=== PATIENT | male | born 1970 | race Caucasian/White ===

== ENCOUNTER 2016-04-30 12:51 | Day surgery (SDC) | payer OTHER ==
[2016-04-26 13:03] VITALS: BMI 29.2
[~2016-04-30 12:51] MED LIST: DEXAMETHASONE SOD PHOSPHATE 10 MG/ML 1 ML VIAL IV ONE; HYDROmorphone 1 MG/ML 1 ML SYRINGE IVP PRN; LACTATED RINGERS 1,000 ML IV SCH; MIDAZOLAM 2 MG/2 ML VIAL IV PRN; ONDANSETRON 4 MG/2 ML VIAL IVP ONE; Pre Op ABX Message 1 EACH MISC MISCELLANE ONE; SCOPOLAMINE 1.5MG/72HR PATCH TRANSDERM ONE
[2016-04-30] MEDS ORDERED: LIDOCAINE 1% 20 ML VIAL (10MG/ML) FOR IV START INTRADERMA ONE (13:14)
[2016-04-30] MEDS: HEPARIN SODIUM,PORCINE 5,000 UNIT/ML 1 ML VIAL SQ ONE ×2 (13:30→14:37)
[2016-04-30] MEDS ORDERED: HEPARIN SODIUM,PORCINE 5,000 UNIT/ML 1 ML VIAL SQ ONE (15:20)
[2016-04-30] MEDS ORDERED: fentaNYL (PF) 50 MCG/ML 2 ML AMP ONE (15:39)
[2016-04-30] MEDS ORDERED: LIDOCAINE 1% INJ 10MG/ML (20 ML MDV) ONE (15:39)
[2016-04-30] MEDS ORDERED: SODIUM CHLORIDE 0.9% 50 ML with ceFAZolin 2,000 MG IV ONE ×2 (15:39)
[2016-04-30] MEDS ORDERED: SUCCINYLCHOLINE CHLORIDE 100 MG/5 ML SYR IV ONE (15:39)
[2016-04-30] MEDS ORDERED: MIDAZOLAM 2 MG/2 ML VIAL ONE (15:39)
[2016-04-30] MEDS ORDERED: PROPOFOL 10 MG/ML 20 ML VIAL IV ONE (15:39)
[2016-04-30] MEDS ORDERED: GLYCOPYRROLATE 0.2 MG/ML 2 ML VIAL ONE (15:39)
--- NOTE | 2016-04-30 16:13 | P.OP ---
Date of Procedure: 04/30/16 Preoperative Diagnosis: Excision sebaceous cyst from back Postoperative Diagnosis: Sebaceous cyst on back 4 cm x 3 cm Procedure(s) Performed: Excision sebaceous cyst Anesthesia: ELENITA Surgeon: Terri Ribera Estimated Blood Loss (ml): 3 IV fluids (ml): 300 Pathology: other (Sebaceous cyst) Condition: stable Disposition: PACU Indications for Procedure: Recurrent infection and sebaceous cyst on back Operative Findings: Sebaceous cyst 4 x 3 cm in size just to the right of the midline in the back Description of Procedure: Patient was taken to the operating room and following induction of anesthesia he was placed in the left lateral position. The area of the sebaceous cyst on the back was prepped in the sterile fashion. Incision was made in the cyst was carefully dissected free from the surrounding tissues being careful not to injure the cystic cavity. The lesion was approximately 4 x 3 cm in size. It extended deep into the subcutaneous tissues onto the area near the anterior spine of the vertebrae. After it had been completely excised the wound was well irrigated. After assured that hemostasis was attained several deep 3-0 Vicryl sutures were placed. A nylon running skin suture was placed. A Ethan drain had been placed prior to this and was secured using a nylon suture. A small pressure dressing was applied. Patient tolerated procedure in stable condition All instrument and sponge counts were correct at the end of the case
--- NOTE | 2016-04-30 16:14 | P.DS ---
Providers Attending physician: Terri Ribera Primary care physician: Luigi Capps Plan - Discharge Summary Discharge Medication List Hydrochlorothiazide 25 mg PO DAILY 11/20/15 [History] Losartan Potassium [Cozaar] 50 mg PO DAILY 11/20/15 [History] Follow up Appointment(s)/Referral(s): Terri Ribera MD [STAFF PHYSICIAN] - 3 Days Activity/Diet/Wound Care/Special Instructions: The patient may shower after [address] if taking pain medication Discharge Disposition: HOME SELF-CARE
[2016-04-30 16:28] VITALS: RESP 16; TEMP 97.6
[2016-04-30 18:15] VITALS: BP 112/58; PULSE 56
== END 2016-04-30 18:52 | disposition home or self-care (01) ==
LOC: OR 12:51
PROVIDERS: ATTEND Surgery
DX: L72.0 Epidermal cyst (principal); L85.9 Epidermal thickening, unspecified; I10 Essential (primary) hypertension; F17.200 Nicotine dependence, unspecified, uncomplicated; Z79.899 Other long term (current) drug therapy
CPT/HCPCS: 88304; 11406; J2250; J1644; J1100; J2405; J2001; J3010; J0690; J0330; J2704

== ENCOUNTER → 2017-07-01 | Outpatient (CLI) | payer OTHER ==
--- NOTE | 2017-07-01 13:16 | CT ---
EXAMINATION TYPE: CT abdomen wo/w con, adrenal mass protocol CT DATE OF EXAM: 07/01/2017 COMPARISON: CT chest 06/17/2017 HISTORY: 46-year-old male had abnormal prior CT showing adrenal mass. TECHNIQUE: Contiguous axial scanning of the abdomen before and after administration of 100 ml Isovue 300 IV contrast. 15 minute delayed images and coronal/sagittal reconstructions performed. CT DLP: 1367 mGycm Automated exposure control for dose reduction was used. FINDINGS: Heart normal size without pericardial effusion. Strandy atelectasis at the basilar right middle lobe and inferior lingula. No pleural effusion. No focal liver lesion or biliary ductal dilatation. Portal venous system appears patent. Gallbladder, right adrenal gland, kidneys, spleen, and pancreas appear within normal limits. Redemonstrated nodule in the left adrenal gland. This measures 1.1 cm. A noncontrast sequence, noncon trast sequence shows density of -14 Hounsfield units compatible with a benign lipid rich adrenal everardo ashlee. No dilated small bowel, free fluid, or free air. Moderate atherosclerotic plaque circumferentially around the infrarenal abdominal aorta. There is mod erate to severe focal narrowing of the left common iliac artery secondary to atherosclerotic plaque. Refer to axial image 57. Prominent 7 mm left periaortic lymph node probably reactive/post inflammatory. Otherwise, no mesenter ic or retroperitoneal lymphadenopathy. Moderate stool in the colon without pericolonic inflammatory change. Bones: There is a bony protuberance along the right iliac fossa measuring 2.4 cm wide. Possible exost osis. Recommend six-month follow-up to reassess this area. Mild endplate spondylosis throughout. No o sseous destructive process. IMPRESSION: 1. DENSITY CHARACTERISTICS ARE COMPATIBLE WITH A 1.1 CM BENIGN LIPID RICH LEFT ADRENAL ADENOMA. 2. A 2.4 CM BONY PROTUBERANCE ALONG THE RIGHT ILIAC FOSSA. POSSIBLE BENIGN OSTEOCHONDROMA/EXOSTOSIS. RECOMMEND 6 MONTH FOLLOW-UP CT TO ENSURE STABILITY.
== END | disposition home or self-care (01) ==
LOC: RADCTMAIN 11:36
PROVIDERS: ATTEND Family Medicine
DX: R93.49 Abnormal radiologic findings on diagnostic imaging of other urinary organs (principal); R19.09 Other intra-abdominal and pelvic swelling, mass and lump
CPT/HCPCS: 74170; Q9967

== ENCOUNTER → 2017-12-24 | Outpatient (CLI) | payer OTHER ==
--- NOTE | 2017-12-24 10:13 | CT ---
EXAMINATION TYPE: CT chest wo con DATE OF EXAM: 12/24/2017 COMPARISON: 06/17/2017 HISTORY: follow up for known pulmonary nodule CT DLP: 366 mGycm. Automated Exposure Control for Dose Reduction was Utilized. TECHNIQUE: CT scan of the thorax is performed without IV contrast. FINDINGS: LUNGS: Again there is incidental note of an azygos fissure and lobe. Moderate centrilobular emphysema tous changes and paraseptal emphysematous changes with subpleural reticulation are redemonstrated. Po ssible atelectatic vessel versus small pulmonary nodule is stable and series 4 image 43 within the ri ght lower lobe. There is a stable 3 mm solid pulmonary nodule within the right upper lobe laterally o n image 25. Again there is medial lingular atelectasis and pleural parenchymal scarring within the li ngula and right middle lobe. New 3 mm nodular density within the left upper lobe is seen on image 14. aThe no pulmonary masses are identified. Stable linear area of scarring versus developing subsolid p ulmonary nodule is seen within the left lower lobe superior segment on series 4 image 34, series 6 im age 81 and series 7 image 85. This measures 6 mm in greatest dimension. MEDIASTINUM: Lack of IV contrast is noted to limit evaluation for mediastinal and especially hilar ad enopathy. There are no definitive greater than 1 cm hilar or mediastinal lymph nodes. No cardiomega ly or pericardial effusion is seen. There are minimal coronary artery calcifications. Again there is no aneurysmal dilatation of the ascending thoracic aorta as it measures approximately 3.7 cm. OTHER: There is a fat-containing lipid rich medial limb adrenal gland adenoma on the left versus myel olipoma. Punctate lower thoracic probable bone island is seen right laterally and similar to the prio r exam. IMPRESSION: 1. Stable subcentimeter pulmonary nodules in comparison to the prior exam of 06/17/2017. Again follow- up CT thorax is recommended in 12 months establish continued stability or assess for interval growth. Findings are superimposed upon moderate emphysematous change. No new mediastinal adenopathy. 2. Benign lipid rich left adrenal adenoma.
== END | disposition home or self-care (01) ==
LOC: RADCTMAIN 08:51
PROVIDERS: ATTEND Family Medicine
DX: J43.9 Emphysema, unspecified (principal)
CPT/HCPCS: 71250

== ENCOUNTER → 2019-05-10 | Outpatient (CLI) | payer OTHER ==
--- NOTE | 2019-05-10 12:10 | XR ---
EXAMINATION TYPE: XR lumbar spine 2 or 3V DATE OF EXAM: 05/10/2019 CLINICAL HISTORY: Right lower extremity pain and swelling. Sciatica. TECHNIQUE: Frontal and lateral images of the lumbar spine are obtained. COMPARISON: None FINDINGS: There are 5 lumbar type vertebral bodies identified. The lumbar spine shows satisfactory alignment without evidence of acute fracture or dislocation. Vertebral body heights and disk space he ights are within normal limits. Mild facet arthropathy from L4 through S1 is seen with small anterior osteophytes of the thoracolumbar junction appear within normal limits. The overlying soft tissue ap pears unremarkable. IMPRESSION: No acute fracture or dislocation is seen in the lumbar spine. Mild multilevel degenerati ve disc disease of the lumbar spine.
--- NOTE | 2019-05-12 10:31 | P.ARTDOP ---
Arterial Doppler LOWER EXTREMITY ARTERIAL DOPPLER: DATE OF SERVICE: 05/10/2019 Reason for study: Right calf pain. Doppler waveforms: Multiphasic throughout on the right. Multiphasic at the left femoral and atypical below.. Pulse volume recording: Toe waveforms are very blunted. Pressure gradients: Above the knee on the left and both sides of the foot level. Ankle-brachial indices: Greater than 1 on the right and 0.64 on the left. Toe brachial indices: 0 on the right, 0.06] on the left Impression: Moderate left fem-pop disease. Suspect that blunting of toe waveforms is a vasospastic phenomenon. Study does not correlate with patient's symptoms. Clinical correlation recommended..
== END | disposition home or self-care (01) ==
LOC: RADUSWWP 10:11
PROVIDERS: ATTEND Family Medicine
DX: R60.0 Localized edema (principal); M51.36 Other intervertebral disc degeneration, lumbar region
CPT/HCPCS: 72100; 93923

== ENCOUNTER → 2020-09-29 | Outpatient (CLI) | payer OTHER ==
--- NOTE | 2020-09-29 13:31 | CT ---
EXAMINATION TYPE: CT angio abd aorta w/Runoff DATE OF EXAM: 09/29/2020 COMPARISON: CT abdomen 07/01/2017 HISTORY: 49-year-old male I 7 4.3, claudication. Worsening symptoms of left leg numbness and ability to ambulate. Known bloodflow decrease left leg TECHNIQUE: Contiguous axial scanning of the abdomen and pelvis with bilateral lower extremity runoff performed with IV Contrast, patient injected with 125 mL of Isovue 370. Coronal/sagittal reconstructi ons performed. 3-D reconstructions generated on a dedicated independent workstation. CT DLP: 1054.3 mGycm Automated exposure control for dose reduction was used. FINDINGS: Heart normal size without pericardial effusion. Some underlying emphysematous change in the visualize d lower lungs with strandy areas of scarring or atelectasis anteriorly. No pleural effusion. There may be some degree of fatty infiltration of the liver. Limited by arterial phase imaging. Otherwise, arterial phase imaging of the liver, gallbladder, right adrenal gland, kidneys, and pancre as within normal limits. Stable 1.0 cm adrenal adenoma on the left. Spleen is mildly enlarged at 14.2 cm versus 13.3 cm, previously. No dilated small bowel, free fluid, or free air. Some scattered prominent retroperitoneal lymph nodes such as in the left periaortic region measuring up to 7 mm are unchanged. Mason hepatic lymph nodes measuring up to 9 mm also unchanged. Findings lik swapnil reactive/post inflammatory. Normal appendix. Mild stool burden. Minimal diverticular change of the sigmoid colon. No perisplenic inflammatory change. Bladder partially distended. Central prosthetic calcifications. Prostate gland mildly enlarged at 4.1 cm. No abnormal fluid collection in the pelvis or pelvic lymphadenopathy. VASCULATURE: Lower descending thoracic aorta normal caliber at 2.3 cm. Duplex right renal artery. Origin of the visceral artery branches are patent. There is moderate circumferential plaque within the mid abdominal aorta with caliber narrows down to 1.2 cm on axial image 82. RIGHT: Mild to moderate atherosclerotic narrowing secondary to eccentric wall plaque proximal right common i liac artery axial image 99. Right external iliac artery, right [employer] WORKING SUPERVISOR, PFA, and SFA are patent. Mild eccentric atherosclerotic plaque within the popliteal artery. Mild atelectatic calcifications within the tibial peroneal trunk. Anterior tibial artery seen to the distal third leg level. Peroneal artery seen faintly to just above the ankle. Runoff via the posterior tibial artery. LEFT: There is occlusion at the proximal to mid left common iliac artery for a span of 4.5 cm, coronal imag e 44. Reconstitution at the iliac artery. Mild atherosclerotic narrowing at the origin of the left internal iliac artery. [employer] WORKING SUPERVISOR, PFA, and SFA are patent. Popliteal artery is patent. Mild vascular calcifications tibial peroneal trunk. Diminutive faint anterior tibial artery into the foot. Peroneal artery seen to just above the ankle l evel. Satisfactory runoff via the posterior tibial artery. Bones: Early multilevel degenerative disc disease. IMPRESSION: 1. MILD TO MODERATE ATHEROSCLEROTIC PLAQUE MID ABDOMINAL AORTA CAUSING LUMINAL NARROWING DOWN TO 1.2 CM. 2. 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 3. SATISFACTORY RUNOFF VIA THE POSTERIOR TIBIAL ARTERY ON BOTH SIDES. PERONEAL ARTERY BECOMES DIMINUT VENUS JUST ABOVE THE ANKLE. THE ANTERIOR TIBIAL ARTERIES ARE WELL SEEN TO THE DISTAL THIRD LEG LEVELS. 4. STABLE 1 CM LEFT ADRENAL ADENOMA. THERE IS MILD SPLENOMEGALY INCIDENTALLY NOTED AT 14.2 CM 14.2 CM VERSUS 13.3 CM.
== END | disposition home or self-care (01) ==
LOC: RADCTMAIN 09:59
PROVIDERS: ATTEND Surgery
DX: D35.02 Benign neoplasm of left adrenal gland (principal); I73.9 Peripheral vascular disease, unspecified; I74.5 Embolism and thrombosis of iliac artery
CPT/HCPCS: 75635; Q9967

== ENCOUNTER → 2020-11-09 | Outpatient (CLI) | payer OTHER ==
[2020-11-09 13:00] LABS: Basophils # (A) 0.1 k/uL (0-0.2); Basophils % (A) 1 %; Eosinophils # (A) 0.2 k/uL (0-0.7); Eosinophils % (A) 2 %; HCT 45.1 % (39.0-53.0); HGB 15.7 gm/dL (13.0-17.5); Lymphocytes # (A) 2.9 k/uL (1.0-4.8); Lymphocytes % (A) 29 %; MCH 32.6 pg (25.0-35.0); MCHC 34.8 g/dL (31.0-37.0); MCV 93.9 fL (80.0-100.0); Mean Platelet Volume 7.5; Monocytes # (A) 0.5 k/uL (0-1.0); Monocytes % (A) 6 %; Neutrophils % (A) 61 %; Platelet Count 287 k/uL (150-450); RDW 12.3 % (11.5-15.5); WBC 9.9 k/uL (3.8-10.6)
[2020-11-09 13:03] LABS: African American GFR (CKD) >90 (>60 ml/min/1.73 sqM); Anion Gap 8 mmol/L; Blood Urea Nitrogen 15 mg/dL (9-20); Carbon Dioxide 32 mmol/L (22-30); Chloride 101 mmol/L (98-107); Non-African American GFR(CKD) 89 (>60 ml/min/1.73 sqM); Potassium 4.1 mmol/L (3.5-5.1); Sodium 141 mmol/L (137-145)
== END | disposition home or self-care (01) ==
LOC: LABPAT 11:00
PROVIDERS: ATTEND Surgery
DX: Z01.812 Encounter for preprocedural laboratory examination (principal); I73.9 Peripheral vascular disease, unspecified
CPT/HCPCS: 36415; 80051; 82565; 84520; 85025

== ENCOUNTER 2020-11-14 05:53 | Day surgery (SDC) | payer OTHER ==
[2020-11-13 10:05] VITALS: BMI 31.1
[2020-11-14] MEDS ORDERED: SODIUM CHLORIDE 0.9% 1,000 ML IV ONE (06:34)
[2020-11-14 06:35] VITALS: RESP 18; TEMP 98.2
[2020-11-14] MEDS ORDERED: LIDOCAINE 1% INJ 10MG/ML (20 ML MDV) ONE (07:17)
[2020-11-14] MEDS ORDERED: fentaNYL (PF) 50 MCG/ML 2 ML AMP ONE (07:33)
[2020-11-14] MEDS ORDERED: LIDOCAINE 1% INJ 10MG/ML (20 ML MDV) SQ ONE (07:36)
[2020-11-14] MEDS ORDERED: MIDAZOLAM 2 MG/2 ML VIAL IV ONE (07:37)
[2020-11-14] MEDS ORDERED: fentaNYL (PF) 50 MCG/ML 2 ML AMP IV ONE (07:38)
[2020-11-14] MEDS ORDERED: HEPARIN SODIUM 1,000 UN/ML (10ML VL) ONE (07:40)
[2020-11-14] MEDS: HEPARIN SODIUM 1,000 UN/ML (10ML VL) IV ONE ×2 (07:41→08:24)
[2020-11-14] MEDS ORDERED: CLOPIDOGREL 75 MG TAB ONE (08:46)
[2020-11-14] MEDS ORDERED: CLOPIDOGREL 75 MG TAB PO ONE (08:48)
[2020-11-14] MEDS ORDERED: IOPAMIDOL-250 100ML BTL INTRAARTER ONE (08:50)
--- NOTE | 2020-11-14 09:10 | P.OP ---
Date of Procedure: 11/14/20 Description of Procedure: Preoperative diagnosis: Left lower extremity hip claudication Corozal classification 3, left common iliac artery occlusion Postop diagnosis: Same Procedure: #1 ultrasound-guided bilateral common femoral artery access. #2 percutaneous transluminal balloon angioplasty of the left common iliac artery. #3 percutaneous stenting of the left common iliac artery with 8 x 59 Omnilink balloon expandable stent. #4 aortogram with selective left lower extremity iliofemoral angiogram second order. #5 percutaneous closure with Vascade device bilateral common femoral arteries. Surgeon: Bruno Anesthesia: Moderate sedation times 66 minutes Estimated blood loss: 10 cc Complications: None Condition: Stable Disposition: Palpable DP and PT pulses bilaterally Lesion: Left common iliac artery- length 50mm, 100% occlusion Postoperative treatment: Widely patent without stenosis Indication for procedure: 49-year-old gentleman with history of claudication worse on the left lower extremity presented to the office secondary to pain in his left hip and leg area with ambulation. He states it's worse with walking upstairs or extended distance usually around 500- 1000 feet. He underwent ultrasound demonstrating ABIs of 0.99 on the right and 0.59 on the left. He then underwent CT angiogram with runoff demonstrating occlusion of his left common iliac artery with reconstitution at the external iliac artery. He presents today for endovascular repair and stenting of the left common iliac artery. Operative narrative: After written informed consent was obtained the patient all risks benefits competitions were described the patient is brought to the Advisory Software Engineer and laid in a supine position. The area of the bilateral groins were prepped and draped in the usual sterile fashion. Local anesthesia with moderate sedation was performed with continuous pulse ox monitoring and EKG monitoring. Utilizing ultrasound the bilateral common femoral arteries were visualized and shown to be patent without any significant plaque. Utilizing a multipurpose needle under ultrasound guidance the artery was accessed. Guidewire was placed followed by a 6-Trinidadian sheath in bilateral common femoral arteries. Patient was administered heparin and followed with ACTs. Retrograde angiogram was then obtained demonstrating occlusion of the common iliac artery. 035 Glidewire was then placed followed by a rim catheter and aortogram was obtained demonstrating occlusion just distal to the takeoff of the left common iliac artery. Utilizing 035 Glidewire attempt was then made to cross the lesion from a retrograde fashion without success. Attempt then from the antegrade aspect via the right c ommon femoral sheath through the rim catheter was attempted and were unable to cross the lesion due to the bowing of the wire. The 6-Trinidadian sheath was then removed and replaced with a Destino directional sheath which was placed at the bifurcation. Utilizing an 035 Glidewire and quick cross catheter the lesion was then crossed. The wire was then placed into the left femoral sheath and a body floss technique was utilized. The quick cross catheter was then removed and placed up in a retrograde fashion through the left femoral sheath to the aortic bifurcation. Wire was then removed and redirected into the aorta. The cross catheter was then placed into the aorta and aortogram was obtained demonstrating good intraluminal access without any dissection. Quick cross catheter was then removed and a 7 x 60 mm balloon was utilized and balloon angioplasty was performed across the occlusion. Angiogram was obtained of the left iliofemoral segment demonstrating approximately 50 mm lesion. After measurements were obtained an 8 x 59 mm Omnilink balloon expandable stent was chosen and deployed in normal fashion. Once deployed finally gram was obtained demonstrating no residual stenosis with brisk flow through the stent. All guidewires and catheters were removed. The sheaths were then removed with Vascade closure device utilized for bilateral common femoral arteries. Hemostasis was achieved and patient tolerated the procedure and had palpable DP and PT pulses bilaterally at the conclusion of the procedure. He was then sent to PACU for recovery. Plan - Discharge Summary Discharge Rx Participant: Yes New Discharge Prescriptions: No Action hydroCHLOROthiazide 25 mg PO DAILY Losartan Potassium [Cozaar] 50 mg PO DAILY Atorvastatin [Lipitor] 20 mg PO DAILY Allopurinol [Zyloprim] 100 mg PO DAILY Multivit-Min/Folic/Vit K/Lycop [Men's Multivitamin Tablet] 1 each PO DAILY Aspirin 81 mg PO DAILY Discharge Medication List Losartan Potassium [Cozaar] 50 mg PO DAILY 11/20/15 [History] hydroCHLOROthiazide 25 mg PO DAILY 11/20/15 [History] Allopurinol [Zyloprim] 100 mg PO DAILY 10/30/20 [History] Aspirin 81 mg PO DAILY 10/30/20 [History] Atorvastatin [Lipitor] 20 mg PO DAILY 10/30/20 [History] Multivit-Min/Folic/Vit K/Lycop [Men's Multivitamin Tablet] 1 each PO DAILY 11/13/20 [History] Follow up Appointment(s)/Referral(s): Wilfrido Carr DO [STAFF PHYSICIAN] - 2 Weeks Discharge Disposition: HOME SELF-CARE
--- NOTE | 2020-11-14 12:22 | IR ---
EXAMINATION TYPE: IR captain assistant iliac DATE OF EXAM: 11/14/2020 COMPARISON: NONE HISTORY: Fluoroscopy time. Fluoroscopy was provided to the referring clinician.
[2020-11-14 14:44] VITALS: BP 128/74; PULSE 58
== END 2020-11-14 15:52 | disposition home or self-care (01) ==
LOC: CATHCVL 05:53
PROVIDERS: ATTEND Surgery
DX: I74.5 Embolism and thrombosis of iliac artery (principal); I73.9 Peripheral vascular disease, unspecified; Z79.82 Long term (current) use of aspirin; Z79.899 Other long term (current) drug therapy
CPT/HCPCS: 37221; 87635; C1894 ×3; C1769 ×5; C1725; C1876; C1887; C1760; J2250; J2001; J3010; J1644; Q9966

== ENCOUNTER → 2021-05-15 | Outpatient (CLI) | payer OTHER ==
--- NOTE | 2021-05-16 17:31 | MR ---
EXAMINATION TYPE: MR ankle LT wo con DATE OF EXAM: 05/15/2021 COMPARISON: NONE HISTORY: 50-year-old male M25.579, Left ankle pain, no trauma. TECHNIQUE: Multiplanar, multisequence images of the left ankle were obtained without IV contrast. FINDINGS: There is some cystic change at the angle of Gissane. This could represent prominent vascular remnants or cystic changes reactive to repeated bony abutment with the lateral talar process such as if the p atient has accentuated hindfoot valgus. Clinically correlate. Some adjacent fluid is present along th e anterior margin of the posterior subtalar joint. Otherwise, no evidence for fracture or suspicious bone marrow edema. Small plantar heel spur. Subtalar joint is aligned. Tibiotalar joint is intact. The anterior extensor tendons and syndesmosis appear intact. There seems to be some edema within the navicular attachment fibers of the superomedial spring ligame nt, coronal image 22. Deltoid ligament appears grossly intact. Mild tenosynovial fluid along the post erior tibial tendon. Medial flexor tendons otherwise unremarkable. Mild tenosynovial fluid along the inframalleolar peroneal tendons. There is attenuated caliber and in creased signal of the distal peroneus longus at its plantar attachment to the base of the first metat arsal with a couple ganglion cyst measuring up to 1 cm along its tendon sheath, refer to coronal imag es 10 and 11 for example. Lateral ligamentous complex appears intact. Smooth delineation of the Achilles tendon. Trace effusion within the retrocalcaneal bursa. Os trigonum noted without any abnormal edema. The tarsal tunnel is clear. 1 cm ganglion cyst extending out of the sinus Tarsi. IMPRESSION: 1. Correlate for any accentuated hindfoot valgus as there may be some reactive bony changes below the lateral talar process that can be seen in the setting of extra-articular lateral hindfoot impingemen t. 2. Mild sprain at the navicular attachment of the spring ligament. Mild posterior tibial tenosynoviti s. 3. Small partial tear at the plantar attachment of the peroneus longus at the base of the first metat arsal. Some reactive ganglion cyst formation measuring up to 1 cm just adjacent. 4. A 1 cm ganglion cyst extending out of the sinus Tarsi. Some mild adjacent soft tissue edema is non specific.
== END | disposition home or self-care (01) ==
LOC: RADMRIMAIN 10:53
PROVIDERS: ATTEND Family Medicine
DX: S93.492A Sprain of other ligament of left ankle, initial encounter (principal); M67.472 Ganglion, left ankle and foot; M65.872 Other synovitis and tenosynovitis, left ankle and foot; X58.XXXA Exposure to other specified factors, initial encounter

== ENCOUNTER 2021-10-27 15:27 | Emergency (ER) | payer OTHER ==
[2021-10-27 15:37] VITALS: TEMP 98
--- NOTE | 2021-10-27 16:18 | XR ---
EXAMINATION TYPE: XR chest 2V DATE OF EXAM: 10/27/2021 COMPARISON: 11/07/2015 HISTORY: Chest pain TECHNIQUE: FINDINGS: Heart and mediastinum are normal. Lungs are clear of infiltrate. No heart failure. There no hilar masses. The bony thorax is intact. IMPRESSION: No active cardiopulmonary disease. No change
--- NOTE | 2021-10-27 16:42 | ED ---
General Adult HPI - General Chief complaint: Upper Respiratory Infection Stated complaint: Low Oxygen Time Seen by Provider: 10/27/21 15:52 Source: patient, RN notes reviewed, old records reviewed Mode of arrival: ambulatory Limitations: no limitations - History of Present Illness Initial comments: Patient is a 50-year-old male who presents emergency Department complaining of upper respiratory illness over the last 6-7 days. Symptoms started on Friday when he felt extremely fatigued and slept all day. States he began feeling improved throughout the week, however the last 2 days has become more fatigued again. Is having a cough that is minimally productive of a yellowish tinged sputum. Moist significant past medical history is hypertension per patient. Denies any nausea, vomiting, diarrhea. Denies any chest pain, shortness of breath. Denies sore throat. Is tolerating oral intake. He was concerned that he may have Covid. Presented to an outpatient urgent care where they said that his oxygenation was low. He believes it may have been 93%. Was instructed to come here for further evaluation. Unknown if he has Covid based on outpatient testing. Was not vaccinated for COVID-19. - Related Data Home Medications Medication Instructions Recorded Confirmed Losartan Potassium [Cozaar] 50 mg PO DAILY 11/20/15 11/14/20 hydroCHLOROthiazide 25 mg PO DAILY 11/20/15 11/14/20 Aspirin 81 mg PO DAILY 10/30/20 11/14/20 Atorvastatin [Lipitor] 20 mg PO DAILY 10/30/20 11/14/20 allopurinoL [Zyloprim] 100 mg PO DAILY 10/30/20 11/14/20 Multivit-Min/Folic/Vit K/Lycop 1 each PO DAILY 11/13/20 11/14/20 [Men's Multivitamin Tablet] Allergies Allergy/AdvReac Type Severity Reaction Status Date / Time No Known Allergies Allergy Verified 11/14/20 06:15 Review of Systems ROS Statement: Those systems with pertinent positive or pertinent negative responses have been documented in the HPI. Review of Systems: CONST: Denies fever EYES: Denies blurry vision ENT: Endorses nasal congestion C/V: Denies Chest pain RESP: Denies shortness of breath GI: Denies abdominal pain : Denies dysuria SKIN: Denies rash. MSK: Denies joint pain. NEURO: Denies headache ROS Other: All systems not noted in ROS Statement are negative. Past Medical History Past Medical History: Hypertension, Skin Disorder, Vascular Disorder Additional Past Medical History / Comment(s): PSORIASIS, Gout. History of Any Multi-Drug Resistant Organisms: None Reported Past Surgical History: No Surgical Hx Reported Additional Past Surgical History / Comment(s): LIPOMA REMOVED FROM BACK, aortogram with runoff, lipoma removed under left arm. Past Anesthesia/Blood Transfusion Reactions: No Reported Reaction Past Psychological History: Anxiety Smoking Status: Current every day smoker Past Alcohol Use History: Occasional Past Drug Use History: Marijuana - Past Family History Mother Family Medical History: No Reported History General Exam - General Exam Comments Initial Comments: General: Appears in no acute distress. HEAD: Normal with no signs of head trauma. EYES: EOMI ENT: Hearing grossly intact, normal oropharynx. RESPIRATORY: Clear breath sounds bilaterally. No wheezes, rales, or rhonchi. No hypoxia at rest. No respiratory distress. C/V: Regular rate and rhythm. S1 and S2 auscultated, no edema, peripheral pulses 2+ and intact throughout ABD: Abd is soft, nontender, nondistended EXT: Normal range of motion, no obvious deformity SKIN: No rashes or lesions observed on exposed skin. NEURO: Alert and oriented 4. Limitations: no limitations Course Vital Signs 10/27/21 10/27/21 10/27/21 15:32 16:04 16:15 Temperature 98.0 F Pulse Rate 79 79 79 Respiratory 20 20 18 Rate Blood Pressure 141/87 139/88 O2 Sat by Pulse 95 94 L 95 Oximetry 10/27/21 10/27/21 16:16 17:17 Temperature Pulse Rate 80 Respiratory 18 16 Rate Blood Pressure 130/86 O2 Sat by Pulse 95 Oximetry Medical Decision Making - Medical Decision Making Based on the patient's presentation and physical exam, there was concern for up per respiratory illness for the patient. Was told to come here as his pulse ox was 93% at urgent care. Presents for further evaluation. When acute complaint is a minimally productive cough, as well as fatigue. Was not vaccinated for Covid. Discussed with him that I believe he may have Covid would like to test him for Covid and flu. Chest x-ray will also be obtained. He was in agreement this plan. Vital signs otherwise within normal limits. He is not hypoxic on room air. Ambulatory pulse ox performed by nursing remained at 95% entire time. Patient was in agreement this plan. He is afebrile and vital signs otherwise within normal limits. Chest x-ray shows no acute cardio primary process.Chest x-ray shows no acute cardio pulmonary process. Laboratory studies are remarkable for being positive for COVID-19. Negative for influenza. On reevaluation, vital signs remained within normal limits. Oxygen saturation saturations remained between 95 and 98% on room air has. I discussed results with the patient. He does not meet criteria for monoclonal antibody therapy or Paxlovid therapy.We discussed quarantine until 2 days symptom-free. We discussed obtaining a pulse oximeter. We discussed conservative treatment. He was in agreement this plan. He'll be discharged home at this time. I instructed the patient to follow up with their PCP in the next 1-3 days. I explained that the patient should return to the emergency department if they experience any worsening symptoms. Strict return precautions were discussed with the patient. The patient expressed understanding of these instructions. I answered all questions that the patient had. The patient was discharged home in good condition with their prescriptions and follow up information. - Lab Data Lab Results 10/27/21 10/27/21 Range/Units 15:41 15:41 Coronavirus (PCR) Detected A (Not Detectd) Influenza Type A RNA Not Detected (Not Detectd) Influenza Type B (PCR) Not Detected (Not Detectd) Disposition Clinical Impression: COVID-19 virus infection Disposition: HOME SELF-CARE Condition: Good Instructions (If sedation given, give patient instructions): COVID-19 (Coronavirus Disease 2019) (ED) Additional Instructions: You are COVID 19 positive. Quarentine until 2 days symptom free. Obtain a pulse oximeter and monitor oxygen saturation. Normal oxygen levels are greater than 95%. Patients are hospitalized for oxygen levels 90% or less. Is patient prescribed a controlled substance at d/c from ED?: No Referrals: Luigi Capps MD [Primary Care Provider] - 1-2 days Time of Disposition: 17:10
[2021-10-27 17:17] VITALS: BP 130/86; PULSE 80; RESP 16
== END 2021-10-27 17:22 | disposition home or self-care (01) ==
LOC: EC 15:27
DX: U07.1 COVID-19 (principal); I10 Essential (primary) hypertension; F41.9 Anxiety disorder, unspecified; F17.200 Nicotine dependence, unspecified, uncomplicated; Z79.82 Long term (current) use of aspirin; Z79.899 Other long term (current) drug therapy
CPT/HCPCS: 71046; 87502; 87635; 99283

== ENCOUNTER 2022-03-12 07:08 | Day surgery (SDC) | payer OTHER ==
[2022-03-08 10:49] VITALS: BMI 31.8
[~2022-03-12 07:08] MED LIST changes: -DEXAMETHASONE SOD PHOSPHATE 10 MG/ML 1 ML VIAL IV ONE; -HYDROmorphone 1 MG/ML 1 ML SYRINGE IVP PRN; -LACTATED RINGERS 1,000 ML IV SCH; +LIDOCAINE 1% (10MG/ML) FOR IV START INTRADERMA PRN; -MIDAZOLAM 2 MG/2 ML VIAL IV PRN; -ONDANSETRON 4 MG/2 ML VIAL IVP ONE; -Pre Op ABX Message 1 EACH MISC MISCELLANE ONE; -SCOPOLAMINE 1.5MG/72HR PATCH TRANSDERM ONE
[2022-03-12 07:33] VITALS: TEMP 97.8
[2022-03-12] MEDS: LACTATED RINGERS 1,000 ML IV SCH ×2 (07:40→08:39)
[2022-03-12] MEDS ORDERED: PROPOFOL 10 MG/ML 20 ML VIAL IV ONE (08:41)
[2022-03-12] MEDS ORDERED: LIDOCAINE 2% INJ 20 MG/ML (2 ML VIAL) ONE (08:41)
--- NOTE | 2022-03-12 08:59 | P.PCN ---
Date of Procedure: 03/12/22 Procedure(s) Performed: BRIEF HISTORY: Patient is a 51-year-old pleasant white male scheduled for an elective colonoscopy as a part of screening for colon cancer. PROCEDURE PERFORMED: Colonoscopy with biopsy. PREOPERATIVE DIAGNOSIS: Screening for colon cancer. IV sedation per Anesthesia. PROCEDURE: After informed consent was obtained, the patient, was brought into the endoscopy unit. IV sedation was administered by Anesthesia under continuous monitoring. Digital rectal examination was normal. Initially the Olympus CF-160 flexible video colonoscope was then inserted in the rectum, gradually advanced into the cecum without any difficulty. Careful examination was performed as the scope was gradually being withdrawn. Ileocecal valve and the appendiceal orifice were visualized and appeared normal. Prep was excellent. Mucosa of the cecum, ascending colon, transverse colon, appeared normal. The descending colon there was a 4 mm sessile polyp removed by cold biopsy. In the sigmoid: There was a 5 mm polyp that was removed by cold biopsy. In the rectum there was a 3 mm polyp removed by cold biopsy. Scattered diverticulosis seen. The rest of the sigmoid colon, and rectum appeared normal. Retroflexion was performed in the rectum and no lesions were seen. The patient tolerated the procedure well. IMPRESSION: 4 mm descending colon polyp status post cold biopsy 5 mm sigmoid colon polyp status post cold biopsy 3 mm rectal polyp status post cold biopsy Scattered diverticulosis RECOMMENDATIONS: Findings of this examination were discussed with the patient as his family. He was advised to follow with the biopsy results. If the biopsy results adenoma he can have a repeat colonoscopy in 5 years..
[2022-03-12 09:21] VITALS: BP 120/70; PULSE 69; RESP 20
== END 2022-03-12 09:49 | disposition home or self-care (01) ==
LOC: ORWHC2ENDO 07:08
PROVIDERS: ATTEND Internal Medicine Gastroenterology
DX: Z12.11 Encounter for screening for malignant neoplasm of colon (principal); D12.4 Benign neoplasm of descending colon; D12.5 Benign neoplasm of sigmoid colon; K57.30 Diverticulosis of large intestine without perforation or abscess without bleeding; E78.5 Hyperlipidemia, unspecified; K62.1 Rectal polyp; I10 Essential (primary) hypertension; I73.9 Peripheral vascular disease, unspecified; F12.90 Cannabis use, unspecified, uncomplicated; F17.200 Nicotine dependence, unspecified, uncomplicated; Z95.5 Presence of coronary angioplasty implant and graft; Z79.82 Long term (current) use of aspirin; Z79.01 Long term (current) use of anticoagulants; Z79.899 Other long term (current) drug therapy; Z79.02 Long term (current) use of antithrombotics/antiplatelets
CPT/HCPCS: 88305; 45380; J2704; J2001

== ENCOUNTER → 2022-12-13 | Outpatient (CLI) | payer OTHER ==
--- NOTE | 2022-12-13 12:04 | XR ---
EXAMINATION TYPE: XR hand limited LT DATE OF EXAM: 12/13/2022 CLINICAL HISTORY: pain TECHNIQUE: Frontal, lateral images of the left hand are obtained. COMPARISON: None. FINDINGS: There is no acute fracture/dislocation evident. The joint spaces appear within normal limi ts. Soft tissue swelling noted at the site of clinical concern without radiopaque foreign body. IMPRESSION: There is no acute fracture or dislocation. ICD 10 NO FRACTURE, INITIAL EVALUATION
== END | disposition home or self-care (01) ==
LOC: RADXRMAIN 11:20
PROVIDERS: ATTEND Family Medicine
DX: R60.0 Localized edema (principal)

== ENCOUNTER 2023-02-05 20:42 | Inpatient (IN) | payer OTHER ==
--- NOTE | 2023-02-05 22:32 | XR ---
EXAMINATION TYPE: XR chest 2V DATE OF EXAM: 02/05/2023 9:17 PM CLINICAL INDICATION:Male, 52 years old with history of cough; [facility] COMPARISON: 10/27/2021 TECHNIQUE: XR chest 2V. Frontal PA and lateral views of the chest. FINDINGS: Lines/Tubes: None. Heart/mediastinum: Cardiomediastinal silhouette is well defined. Heart size is normal. Prominent per icardial fat noted. Mediastinum appears normal. Pulmonary vascularity: Not increased, Lungs/Pleura: There is no evidence of pleural effusion, focal consolidation, or pneumothorax. Simila r mildly coarsened appearance of the interstitium, likely chronic changes. Musculoskeletal: No acute osseous abnormality demonstrated in the limits of the exam. Mild degenerat quique changes. Other findings: None. IMPRESSION: No acute cardiopulmonary abnormality.
[2023-02-05 23:44] LABS: Basophils # (A) 0.1 k/uL (0-0.2); Basophils % (A) 1 %; Eosinophils # (A) 0.2 k/uL (0-0.7); Eosinophils % (A) 2 %; HCT 42.5 % (39.0-53.0); HGB 14.5 gm/dL (13.0-17.5); Lymphocytes % (A) 26 %; MCH 31.4 pg (25.0-35.0); MCHC 34.1 g/dL (31.0-37.0); MCV 92.2 fL (80.0-100.0); Mean Platelet Volume 7.8; Monocytes # (A) 0.7 k/uL (0-1.0); Monocytes % (A) 6 %; Neutrophils # (A) 7.1 k/uL (1.3-7.7); Neutrophils % (A) 62 %; Platelet Count 288 k/uL (150-450); RBC 4.61 m/uL (4.30-5.90); RDW 12.7 % (11.5-15.5); WBC 11.4 k/uL (3.8-10.6)
[2023-02-05 23:52] LABS: African American GFR (CKD) >90 (>60 ml/min/1.73 sqM); Anion Gap 11 mmol/L; Blood Urea Nitrogen 16 mg/dL (9-20); Calcium 9.8 mg/dL (8.4-10.2); Carbon Dioxide 33 mmol/L (22-30); Chloride 99 mmol/L (98-107); Glucose 124 mg/dL (74-99); Non-African American GFR(CKD) >90 (>60 ml/min/1.73 sqM); Potassium 3.8 mmol/L (3.5-5.1); Sodium 143 mmol/L (137-145)
[2023-02-06 00:12] LABS: Appearance,Urine Clear (Clear); Bilirubin,Urine Negative (Negative); Blood,Urine Negative (Negative); Color,Urine Yellow; Glucose,Urine (UA) Negative (Negative); Ketones,Urine Negative (Negative); Leukocyte Esterase,Urine Negative (Negative); Nitrite,Urine Negative (Negative); Protein,Urine Negative (Negative); Urobilinogen,Urine <2.0 mg/dL (<2.0)
--- NOTE | 2023-02-06 01:06 | ED ---
General Adult HPI - General Source: patient, RN notes reviewed Mode of arrival: ambulatory Limitations: no limitations <Rupali Hutchinson - Last Filed: 02/06/23 02:51> - General Source: RN notes reviewed, old records reviewed Limitations: no limitations - History of Present Illness -: hour(s) Radiation: non-radiation Consistency: intermittent Improves with: none Worsens with: none Treatments Prior to Arrival: none <Lamonte Curtis - Last Filed: 02/06/23 06:20> - General Chief complaint: Upper Respiratory Infection Stated complaint: Coughing up blood Time Seen by Provider: 02/06/23 00:20 - History of Present Illness Initial comments: 52-year-old male with a past medical history significant for hypertension presents to the emergency department with a chief complaint of hematemesis. Patient reports that he had a long coughing fit this afternoon which is not elevated normal for him. He reports that he thought that he was coughing up bright red blood he reports the department his symptoms have improved. He does report he takes Plavix. Denies any known fevers, chills chest pain, palpitations, nausea, vomiting. He does report that he smokes tobacco products. (Rupali Hutchinson) This is a 52-year-old male DF for evaluation of hemoptysis. Coughing up blood which began prior to arrival at work today. Patient has no chest pain or fevers. He does smoke cigarettes and has a severe cough (Lamonte Curtis) - Related Data Home Medications Medication Instructions Recorded Confirmed Losartan Potassium [Cozaar] 50 mg PO DAILY 11/20/15 03/12/22 hydroCHLOROthiazide 25 mg PO DAILY 11/20/15 03/12/22 Aspirin 81 mg PO DAILY 10/30/20 03/12/22 Atorvastatin [Lipitor] 20 mg PO DAILY 10/30/20 03/12/22 allopurinoL [Zyloprim] 100 mg PO DAILY 10/30/20 03/12/22 Multivit-Min/Folic/Vit K/Lycop 1 each PO DAILY 11/13/20 03/12/22 [Men's Multivitamin Tablet] Clopidogrel [Plavix] 1 tab PO DAILY 03/12/22 03/12/22 Previous Rx's Medication Instructions Recorded Amoxic-Pot Clav 875-125Mg 1 tab PO Q12HR #20 tablet 02/06/23 [Augmentin 875-125] Azithromycin [Zithromax] 500 mg PO DAILY #5 tab 02/06/23 Benzonatate [Tessalon Perles] 100 mg PO TID PRN #15 capsule 02/06/23 Allergies Allergy/AdvReac Type Severity Reaction Status Date / Time No Known Allergies Allergy Verified 02/05/23 20:53 Review of Systems ROS Other: All systems not noted in ROS Statement are negative. <Rupali Hutchinson - Last Filed: 02/06/23 02:51> ROS Other: All systems not noted in ROS Statement are negative. <Lamonte Curtis - Last Filed: 02/06/23 06:20> ROS Statement: Those systems with pertinent positive or pertinent negative responses have been documented in the HPI. Past Medical History Past Medical History: Hyperlipidemia, Hypertension, Skin Disorder, Vascular Disorder Additional Past Medical History / Comment(s): PSORIASIS, left ankle chronic swelling, peripheral vascular disease requiring revascularization History of Any Multi-Drug Resistant Organisms: None Reported Past Surgical History: No Surgical Hx Reported Additional Past Surgical History / Comment(s): LIPOMA REMOVED FROM BACK left arm, aortogram with runoff, revascularization to left leg with stent Past Anesthesia/Blood Transfusion Reactions: No Reported Reaction Past Psychological History: Anxiety Smoking Status: Current every day smoker - Past Family History Mother Family Medical History: No Reported History <Rupali Hutchinson - Last Filed: 02/06/23 02:51> General Exam Limitations: no limitations <Rupali Hutchinson - Last Filed: 02/06/23 02:51> General appearance: alert, in no apparent distress Head exam: Present: atraumatic, normocephalic, normal inspection Eye exam: Present: normal appearance, PERRL, EOMI. Absent: scleral icterus, conjunctival injection, periorbital swelling ENT exam: Present: normal exam, mucous membranes moist Neck exam: Present: normal inspection. Absent: tenderness, meningismus, lymphadenopathy Respiratory exam: Present: normal lung sounds bilaterally. Absent: respiratory distress, wheezes, rales, rhonchi, stridor Cardiovascular Exam: Present: regular rate, normal rhythm, normal heart sounds. Absent: systolic murmur, diastolic murmur, rubs, gallop, clicks GI/Abdominal exam: Present: soft, normal bowel sounds. Absent: distended, tenderness, guarding, rebound, rigid Extremities exam: Present: normal inspection, full ROM, normal capillary refill. Absent: tenderness, pedal edema, joint swelling, calf tenderness Back exam: Present: normal inspection Neurological exam: Present: alert, oriented X3, CN II-XII intact Psychiatric exam: Present: normal affect, normal mood Skin exam: Present: warm, dry, intact, normal color. Absent: rash <Lamonte Curtis - Last Filed: 02/06/23 06:20> - General Exam Comments Initial Comments: General: Alert, in no acute distress Head: atraumatic normocephalic. Eyes PERRL, EOMI intact, mucous membranes moist Respiratory: Lungs clear to auscultation bilaterally Cardiovascular: Heart rate regular rate and rhythm Abdominal: Soft without guarding or rebound Extremities: Normal inspection with full range of motion and normal capillary refill Neuroogic: alert and oriented 3, CN II-XII intact, able to ambulate with steady gait Skin: warm dry and intact with normal color (Rupali Hutchinson) Course <Rupali Hutchinson - Last Filed: 02/06/23 02:51> <Lamonte Curtis - Last Filed: 02/06/23 06:20> Vital Signs 02/05/23 02/05/23 02/06/23 20:51 23:21 02:00 Temperature 98.3 F Pulse Rate 96 74 61 Respiratory 18 20 16 Rate Blood Pressure 182/73 168/78 132/87 O2 Sat by Pulse 92 L 95 94 L Oximetry - Reevaluation(s) Reevaluation #1: 02/06/23 01:05 Patient educated on the importance for d-dimer testing. Patient agreeable with that plan. (Rupali Hutchinson) 02/06/23 05:57 Medical record is reviewed (Lamonte Curtis) Reevaluation #2: 02/06/23 03:47 Case was signed out to Dr. Curtis, ED attending who assumes care of the patient (Rupali Hutchinson) 02/06/23 05:57 Patient symptoms are persistent with recurrent hemoptysis (Lamonte Curtis) Reevaluation #3: 02/06/23 05:57 Patient informed of results questions answered (JoeanastaciaLamonte Camacho) Reevaluation #4: 02/06/23 05:58 Was pt. sent in by a medical professional or institution ([place] Dong, RESEARCH ANALYST, urgent care, hospital, or fpc...) When possible be specific @ -no Did you speak to anyone other than the patient for history (EMS, parent, family, police, friend...)? What history was obtained from this source @ -no Did you review nursing and triage notes (agree or disagree)? Why? @ -agree Are old charts reviewed (outside hosp., previous admission, EMS record, old EKG, old radiological studies, urgent care reports/EKG's, fpc records)? Report findings @ -yes Differential Diagnosis (chest pain, altered mental status, abdominal pain women, abdominal pain men, vaginal bleeding, weakness, fever, dyspnea, syncope, headac he, dizziness, GI bleed, back pain, seizure, CVA, palpatations, mental health, musculoskeletal)? @ -prior EKG interpreted by me (3pts min.). @ -yes X-rays interpreted by me (1pt min.). @ -yes CT interpreted by me (1pt min.). @ -no U/S interpreted by me (1pt. min.). @ -no What testing was considered but not performed or refused? (CT, X-rays, U/S, labs)? Why? @ -none What meds were considered but not given or refused? Why? @ -none Did you discuss the management of the patient with other professionals (professionals i.e. [place] Dong, RESEARCH ANALYST, lab, RT, psych nurse, social services designee, research biostatistician, teacher, parking enforcement officer, caseworker)? Give summary @ -no Was smoking cessation discussed for >3mins.? @ -no Was critical care preformed (if so, how long)? @ -no Were there social determinants of health that impacted care today? How? (Homelessness, low income, unemployed, alcoholism, drug addiction, trans portation, low edu. Level, literacy, decrease access to med. care, long-term, rehab)? @ -none Was there de-escalation of care discussed even if they declined (Discuss DNR or withdrawal of care, Hospice)? DNR status @ -no What co-morbidities impacted this encounter? (DM, HTN, Smoking, COPD, CAD, Cancer, CVA, ARF, Chemo, Hep., AIDS, mental health diagnosis, sleep apnea, morbid obesity)? @ -none Was patient admitted / discharged? Hospital course, mention meds given and route, prescriptions, significant lab abnormalities, going to OR and other pertinent info. @ - Undiagnosed new problem with uncertain prognosis? @ -no Drug Therapy requiring intensive monitoring for toxicity (Heparin, Nitro, Ins ulin, Cardizem)? @ -no Were any procedures done? @ -no Diagnosis/symptom? @ - Acute, or Chronic, or Acute on Chronic? @ -Acute Uncomplicated (without systemic symptoms) or Complicated (systemic symptoms)? @ -Complicated Side effects of treatment? @ -no Exacerbation, Progression, or Severe Exacerbation? @ -exacerbation Poses a threat to life or bodily function? How? (Chest pain, [place], [place], pneumonia, PE, COPD, DKA, ARF, appy, cholecystitis, CVA, Diverticulitis, Homicidal, Suicidal, threat to staff... and all critical care pts) @ -yes (Lamonte Curtis) EKG Findings - EKG Comments: EKG Findings:: I interpreted the following: EKG performed at 03:253 58 bpm and sinus bradycardia IA interval 158, QRS duration 89, QT/QTc is 406/403 <Rupali Hutchinson - Last Filed: 02/06/23 02:51> Medical Decision Making - Lab Data Result diagrams: 02/05/23 23:23 02/05/23 23:23 <Rupali Hutchinson - Last Filed: 02/06/23 02:51> - Lab Data Result diagrams: 02/05/23 23:23 02/05/23 23:23 - Radiology Data Radiology results: report reviewed (chest x-rays negative for acute disease CT is positive for right sided upper lobe pneumonia), image reviewed <Lamonte Curtis - Last Filed: 02/06/23 06:20> - Medical Decision Making Was pt. sent in by a medical professional or institution ([place] Dong, RESEARCH ANALYST, urgent care, hospital, or fpc...) When possible be specific @ -[No] Did you speak to anyone other than the patient for history (EMS, parent, family, police, friend...)? What history was obtained from this source @ -[No] Did you review nursing and triage notes (agree or disagree)? Why? @ -[I reviewed and agree with nursing and triage notes] Were old charts reviewed (outside hosp., previous admission, EMS record, old EKG, old radiological studies, urgent care reports/EKG's, fpc records)? Report findings @ -[No old charts were reviewed] Differential Diagnosis (chest pain, altered mental status, abdominal pain women, abdominal pain men, vaginal bleeding, weakness, fever, dyspnea, syncope, headache, dizziness, GI bleed, back pain, seizure, CVA, palpatations, mental health, musculoskeletal)? @ -[not applicable] EKG interpreted by me (3pts min.). @ -[As above] X-rays interpreted by me (1pt min.). @ -[None done] CT interpreted by me (1pt min.). @ -[None done] U/S interpreted by me (1pt. min.). @ -[None done] What testing was considered but not performed or refused? (CT, X-rays, U/S, labs)? Why? @ -[None] What meds were considered but not given or refused? Why? @ -[None] Did you discuss the management of the patient with other professionals (professionals i.e. , PA, RESEARCH ANALYST, lab, RT, psych nurse, social services designee, research biostatistician, teacher, parking enforcement officer, caseworker)? Give summary @ -[No] Was smoking cessation discussed for >3mins.? @ -[No] Was critical care preformed (if so, how long)? @ -[No] Were there social determinants of health that impacted care today? How? (Homelessness, low income, unemployed, alcoholism, drug addiction, transportation, low edu. Level, literacy, decrease access to med. care, long-term, rehab)? @ -[No] Was there de-escalation of care discussed even if they declined (Discuss DNR or withdrawal of care, Hospice)? DNR status @ -[No] What co-morbidities impacted this encounter? (DM, HTN, Smoking, COPD, CAD, Cancer, CVA, ARF, Chemo, Hep., AIDS, mental health diagnosis, sleep apnea, morbid obesity)? @ -[None] Was patient admitted / discharged? Hospital course, mention meds given and route, prescriptions, significant lab abnormalities, going to OR and other pertinent info. Disposition pending. This is a 52-year-old male presents the emergency department with hemoptysis Patient had a thorough history and physical exam performed. In stable however initial oxygen saturation is 92% on room air. Patient is not showing any evidence of acute respiratory distress. Able to tolerate oral secretions and speaking in complete sentences. He is not conversationally dyspneic. Patient had laboratory studies which revealed WBC 11.4, hemoglobin 14.5 sodium 143, potassium 2.8 d-dimer 2.1. Urinalysis Covid influenza RSV are negative. Patient will be signed out to Dr. Curtis, ED attending who assumes care of the patient pending CT results. (Rupali Hutchinson) 52 male to the ER for evaluation of cough and hemoptysis. Patient does have a right upper lobe pneumonia on computed tomography scan, place on antibiotics and will be admitted to see respiratory care with pulmonology (Lamonte Curtis) - Lab Data Lab Results 02/05/23 02/05/23 02/05/23 Range/Units 23:23 23:23 23:23 WBC 11.4 H (3.8-10.6) k/uL RBC 4.61 (4.30-5.90) m/uL Hgb 14.5 (13.0-17.5) gm/dL Hct 42.5 (39.0-53.0) % MCV 92.2 (80.0-100.0) fL MCH 31.4 (25.0-35.0) pg MCHC 34.1 (31.0-37.0) g/dL RDW 12.7 (11.5-15.5) % Plt Count 288 (150-450) k/uL MPV 7.8 Neutrophils % 62 % Lymphocytes % 26 % Monocytes % 6 % Eosinophils % 2 % Basophils % 1 % Neutrophils # 7.1 (1.3-7.7) k/uL Lymphocytes # 3.0 (1.0-4.8) k/uL Monocytes # 0.7 (0-1.0) k/uL Eosinophils # 0.2 (0-0.7) k/uL Basophils # 0.1 (0-0.2) k/uL D-Dimer (<0.60) mg/L FEU Sodium 143 (137-145) mmol/L Potassium 3.8 (3.5-5.1) mmol/L Chloride 99 (98-107) mmol/L Carbon Dioxide 33 H (22-30) mmol/L Anion Gap 11 mmol/L BUN 16 (9-20) mg/dL Creatinine 0.97 (0.66-1.25) mg/dL Est GFR (CKD-EPI)AfAm >90 (>60 ml/min/1.73 sqM) Est GFR (CKD-EPI)NonAf >90 (>60 ml/min/1.73 sqM) Glucose 124 H (74-99) mg/dL Calcium 9.8 (8.4-10.2) mg/dL Urine Color Urine Appearance (Clear) Urine pH (5.0-8.0) Ur Specific Geraldine (1.001-1.035) Urine Protein (Negative) Urine Glucose (UA) (Negative) Urine Ketones (Negative) Urine Blood (Negative) Urine Nitrite (Negative) Urine Bilirubin (Negative) Urine Urobilinogen (<2.0) mg/dL Ur Leukocyte Esterase (Negative) Influenza Type A (PCR) Not Detected (Not Detectd) Influenza Type B (PCR) Not Detected (Not Detectd) RSV (PCR) Not Detected (Not Detectd) SARS-CoV-2 (PCR) Not Detected (Not Detectd) 02/05/23 02/06/23 Range/Units 23:32 00:55 WBC (3.8-10.6) k/uL RBC (4.30-5.90) m/uL Hgb (13.0-17.5) gm/dL Hct (39.0-53.0) % MCV (80.0-100.0) fL MCH (25.0-35.0) pg MCHC (31.0-37.0) g/dL RDW (11.5-15.5) % Plt Count (150-450) k/uL MPV Neutrophils % % Lymphocytes % % Monocytes % % Eosinophils % % Basophils % % Neutrophils # (1.3-7.7) k/uL Lymphocytes # (1.0-4.8) k/uL Monocytes # (0-1.0) k/uL Eosinophils # (0-0.7) k/uL Basophils # (0-0.2) k/uL D-Dimer 2.14 H (<0.60) mg/L FEU Sodium (137-145) mmol/L Potassium (3.5-5.1) mmol/L Chloride (98-107) mmol/L Carbon Dioxide (22-30) mmol/L Anion Gap mmol/L BUN (9-20) mg/dL Creatinine (0.66-1.25) mg/dL Est GFR (CKD-EPI)AfAm (>60 ml/min/1.73 sqM) Est GFR (CKD-EPI)NonAf (>60 ml/min/1.73 sqM) Glucose (74-99) mg/dL Calcium (8.4-10.2) mg/dL Urine Color Yellow Urine Appearance Clear (Clear) Urine pH 5.0 (5.0-8.0) Ur Specific Geraldine 1.030 (1.001-1.035) Urine Protein Negative (Negative) Urine Glucose (UA) Negative (Negative) Urine Ketones Negative (Negative) Urine Blood Negative (Negative) Urine Nitrite Negative (Negative) Urine Bilirubin Negative (Negative) Urine Urobilinogen <2.0 (<2.0) mg/dL Ur Leukocyte Esterase Negative (Negative) Influenza Type A (PCR) (Not Detectd) Influenza Type B (PCR) (Not Detectd) RSV (PCR) (Not Detectd) SARS-CoV-2 (PCR) (Not Detectd) Disposition <Rupali Hutchinson - Last Filed: 02/06/23 02:51> Is patient prescribed a controlled substance at d/c from ED?: No Time of Disposition: 06:00 <Lamonte Curtis - Last Filed: 02/06/23 06:20> Clinical Impression: Acute upper respiratory infection, Hemoptysis, Right upper lobe pneumonia Disposition: HOME SELF-CARE Condition: Good Instructions (If sedation given, give patient instructions): Coughing Up Blood (Hemoptysis) (ED), Community Acquired Pneumonia (ED) Prescriptions: Amoxic-Pot Clav 875-125Mg [Augmentin 875-125] 1 tab PO Q12HR #20 tablet Benzonatate [Tessalon Perles] 100 mg PO TID PRN #15 capsule PRN Reason: Cough Azithromycin [Zithromax] 500 mg PO DAILY #5 tab Referrals: Luigi Capps MD [Primary Care Provider] - 1-2 days Philip Velazquez MD [STAFF PHYSICIAN] - 1-2 days
--- NOTE | 2023-02-06 05:01 | CT ---
EXAM: CT Angiography Chest With Intravenous Contrast CLINICAL HISTORY: ITS.REASON CT Reason: + dimer TECHNIQUE: Axial computed tomographic angiography images of the chest with intravenous contrast. CTDI is 48.4 mGy and DLP is 826.1 mGy-cm. This CT exam was performed using one or more of the following dose reduction techniques: automated exposure control, adjustment of the mA and/or kV according to patient size, and/or use of iterative reconstruction technique. MIP reconstructed images were created and reviewed. COMPARISON: No relevant prior studies available. FINDINGS: Pulmonary arteries: No pulmonary embolism detected. Aorta: Atherosclerotic disease. 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 No thoracic aortic aneurysm. Lungs: Dominant right upper lobe consolidation with multifocal airspace and ground glass opacities in the lungs are favored to be infectious in nature. Severe upper lobe predominant centrilobular emphysema. Pleural space: Unremarkable. No significant effusion. No pneumothorax. Heart: Coronary artery calcifications. No cardiomegaly. No significant pericardial effusion. No evidence of RV dysfunction. Bones/joints: Degenerative changes in the spine. No acute fracture. No dislocation. Soft tissues: Gynecomastia. Lymph nodes: Prominent paraesophageal lymph node measuring up to 7 mm. Findings may be infectious or inflammatory in nature. Enlarged right hilar lymph node measuring up to 1.6 cm with additional prominent mediastinal lymph nodes, likely reactive. IMPRESSION: 1. No pulmonary embolism detected. 2. Dominant right upper lobe consolidation with multifocal airspace and ground glass opacities in the lungs are favored to be infectious in nature. 3. Severe upper lobe predominant centrilobular emphysema. 4. 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 5. No other acute findings. 6. Incidental findings as described.
[2023-02-06] MEDS ORDERED: AZITHROMYCIN 500 MG TAB PO STA (05:52)
[2023-02-06] MEDS ORDERED: cefTRIAXone IN SWFI 1,000 MG/10 ML SYRINGE IVP STA (05:52)
[2023-02-06] MEDS ORDERED: AMOXIC-POT CLAV 875MG STARTER PACK 2 TAB BTL PO STA (05:54)
[2023-02-06] MEDS ORDERED: BENZONATATE 100 MG CAP PO STA (05:55)
[2023-02-06] MEDS ORDERED: IPRATROPIUM-ALBUTEROL 3 ML NEB INHALATION STA (06:18)
[2023-02-06] MEDS ORDERED: PNEUMONIA PROTOCOL UTILIZED 1 EACH MISC PO PRN (06:18)
[2023-02-06] MEDS ORDERED: AZITHROMYCIN 500 MG in SODIUM CHLORIDE 0.9% 250 ML IVPB STA (06:18)
[2023-02-06] MEDS ORDERED: IPRATROPIUM-ALBUTEROL 3 ML NEB INHALATION PRN (06:18)
[2023-02-06] MEDS: SODIUM CHLORIDE 0.9% 1,000 ML IV SCH ×2 (06:58→15:31)
[2023-02-06] MEDS ORDERED: HEPARIN SODIUM,PORCINE 5,000 UNIT/ML 1 ML VIAL SQ SCH (16:00)
--- NOTE | 2023-02-06 16:40 | P.CNPUL ---
History of Present Illness Consult date: 02/06/23 Reason for consult: dyspnea Chief complaint: hemoptysis History of present illness: This is a 52-year-old mentation, chronic smoker who works in [employer]. The patient presented to the emergency department yesterday after he had a episode of hemoptysis at work. He had a second episode of hemoptysis with some limited blood clots here in the emergency department. As such, the patient has had a total of 2 episodes of hemoptysis. No worsening shortness of breath. No fever or chills. No significant sputum production. No pleurisy. No previous episodes of hemoptysis. No history of TB exposure. The patient came into the emergency department. A chest x-ray was done and a chest x-ray showed no acute cardiac pulmonary abnormalities, following that, the patient was given a CT of the chest that showed no evidence of any pulmonary embolism. There was a right upper lobe consolidation with multifocal airspace disease and scattered areas of groundglass opacities bilaterally and based on the overall CAT scan findings, this was consistent with infectious process done malignancy. There is also a right hilar lymph node that is slightly enlarged. There is emphysematous changes bilaterally with upper lobe predominance. 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 No other acute abnormalities have been noted. The patient has limited on accommodation of aspirin and Plavix regarding a previous history of claudication and peripheral vascular disease and disease involving the common iliac artery for which the patient has required balloon angioplasty and stenting. As such, the patient has been On accommodation of aspirin and Plavix. The patient is a chronic smoker. The white cell count is 11.4 with a hemoglobin 14.7 and a platelet count of 288. D-dimer is at 2.14. BUN is at 60 with a creatinine of 0.9 and a sodium level is 143. UA is negative. The viral screen was negative. The patient is a previous Covid 19 infection back in 10/27/2021. No recurrent pneumonias. The patient is curre ntly on accommodation of Rocephin and Zithromax. He is also on IV fluids with normal saline at rate of 100 mL an hour. Review of Systems Constitutional: Reports as per HPI Eyes: bilateral tunnel vision/blind spots, denies as per HPI, denies blurred vision, denies bulging eye, denies decreased vision, denies diplopia, denies discharge, denies dry eye, denies irritation, denies itching, denies pain, denies photophobia, denies loss of peripheral vision, denies loss of vision Ears, nose, mouth and throat: Reports as per HPI Breasts: absent: as per HPI, gynecomastia Cardiovascular: Reports as per HPI Respiratory: Reports hemoptysis Gastrointestinal: Reports as per HPI Genitourinary: Reports as per HPI Musculoskeletal: Reports as per HPI Musculoskeletal: absent: ankle pain, ankle stiffness, ankle swelling Neurological: Reports as per HPI Psychiatric: Reports as per HPI Endocrine: Reports as per HPI Hematologic/Lymphatic: Reports as per HPI Allergic/Immunologic: Reports as per HPI Past Medical History Past Medical History: COPD, Hyperlipidemia, Hypertension, Skin Disorder, Vascular Disorder Additional Past Medical History / Comment(s): PSORIASIS, left ankle chronic swelling, peripheral vascular disease requiring revascularization , Left lower extremity hip claudication [place] classification 3, left common iliac artery occlusion History of Any Multi-Drug Resistant Organisms: None Reported Past Surgical History: No Surgical Hx Reported Additional Past Surgical History / Comment(s): LIPOMA REMOVED FROM BACK left arm, aortogram with runoff, revascularization to left leg with stent Past Anesthesia/Blood Transfusion Reactions: No Reported Reaction Past Psychological History: Anxiety Smoking Status: Current every day smoker - Past Family History Mother Family Medical History: No Reported History Medications and Allergies Home Medications Medication Instructions Recorded Confirmed Type Losartan Potassium [Cozaar] 50 mg PO DAILY 11/20/15 02/06/23 History hydroCHLOROthiazide 25 mg PO DAILY 11/20/15 02/06/23 History Aspirin 81 mg PO DAILY 10/30/20 02/06/23 History Atorvastatin [Lipitor] 20 mg PO DAILY 10/30/20 02/06/23 History allopurinoL [Zyloprim] 100 mg PO DAILY 10/30/20 02/06/23 History Multivit-Min/Folic/Vit K/Lycop 1 tab PO DAILY 11/13/20 02/06/23 History [Men's Multivitamin Tablet] Clopidogrel [Plavix] 1 tab PO DAILY 03/12/22 02/06/23 History Amoxic-Pot Clav 875-125Mg 1 tab PO Q12HR #20 tablet 02/06/23 Rx [Augmentin 875-125] Azithromycin [Zithromax] 500 mg PO DAILY #5 tab 02/06/23 Rx Benzonatate [Tessalon Perles] 100 mg PO TID PRN #15 capsule 02/06/23 Rx Allergies Allergy/AdvReac Type Severity Reaction Status Date / Time No Known Allergies Allergy Verified 02/06/23 08:29 Physical Exam Vitals: Vital Signs Temp Pulse Resp BP Pulse Ox 02/06/23 12:03 98.1 F 64 18 123/77 95 02/06/23 11:10 97 02/06/23 11:07 59 L 20 88 L 02/06/23 10:05 98.0 F 75 19 140/99 94 L 02/06/23 09:21 86 16 93 L 02/06/23 08:01 98.2 F 60 18 137/80 94 L 02/06/23 07:55 65 02/06/23 07:45 63 96 02/06/23 06:59 66 16 160/99 96 02/06/23 02:00 61 16 132/87 94 L 02/05/23 23:21 74 20 168/78 95 02/05/23 20:51 98.3 F 96 18 182/73 92 L Intake and Output 02/05/23 02/06/23 02/06/23 22:59 06:59 14:59 Other: Weight 106.141 kg The patient appeared well nourished and normally developed. Vital signs as documented. Head exam is unremarkable. The patient is currently on 2 L of O2 nasal cannula with a pulse ox of 97%. Room air pulse ox dropped as low as 88% at the time of his admission. No scleral icterus or corneal arcus noted. Neck is without jugular venous distension, thyromegaly, or carotid bruits. Carotid upstrokes are brisk bilaterally. Lungs are clear to auscultation and percussion. Cardiac exam reveals the PMI to be normally sized and situated. Rhythm is regular. First and second heart sounds normal. No murmurs, rubs or gallops. Abdominal exam reveals normal bowel sounds, no masses, no organomegaly and no a ortic enlargement. Extremities are nonedematous and both femoral and pedal pulses are normal.Examination of the skin revealed no evidence of significant rashes, suspicious appearing nevi or other concerning lesions.Neurologically, the patient is awake and alert and the patient does not have any focal neurological deficit. Cranial nerves are essentially intact. Results - Laboratory Findings CBC and BMP: 02/05/23 23:23 02/05/23 23:23 PT/INR, D-dimer D-Dimer 2.14 mg/L FEU (<0.60) H 02/06/23 00:55 Abnormal lab findings: Abnormal Labs 02/05/23 12 12 23:23 23:23 00:55 WBC 11.4 H D-Dimer 2.14 H Carbon Dioxide 33 H Glucose 124 H - Diagnostic Findings Chest x-ray: image reviewed CT scan - chest: image reviewed Assessment and Plan Plan: Acute hemoptysis with a consolidating masslike opacity in the right upper lobe and scattered areas of patchy groundglass pulmonary infiltrates and the overall picture is consistent with infectious causes over malignancy. There is also a right hilar lymph node that needs to be watched very closely. The patient is currently on accommodation of Rocephin and Zithromax. Patient is also on a combination of aspirin and Plavix that was given following a vascular intervention involving the left lower extremity. No significant shortness of breath. No exposure to tuberculosis. He is a chronic smoker COPD with upper lobe predominance Chronic smoker Peripheral vascular disease with previous claudication and occlusion of the common iliac artery post adjuvant seen and stenting, maintain on a termination of aspirin and Plavix Hyperlipidemia Hypertension History of psoriasis Gout Plan Obtain sputum Gram stain and culture Obtain Legionella urine antigen Check pro calcitonin Agree on the current antibiotic coverage We'll monitor the patient. We'll stop the aspirin and Plavix for now. We will need to have a follow-up chest x-ray and possibly a bronchoscopy at the later stage of his hemoptysis recurs and/or his right upper lobe pulmonary infiltrates remain unchanged. We'll admit for IV antibiotics monitored hemoptysis We'll continue to follow
--- NOTE | 2023-02-06 22:14 | P.HPIM ---
History of Present Illness H&P Date: 02/06/23 Chief Complaint: Hemoptysis Patient is a 52-year-old male with a known history of hypertension, hyperlipidemia, peripheral vascular disease with prior history of left common i liac balloon angioplasty and stent placement, anxiety and currently everyday smoker presents to ER with complaints of spitting up blood. Patient states that yesterday afternoon while he was at home he had an episode of hemoptysis. He did have another 2 episodes after coming to the ER and total of 3 episodes of hemoptysis. Mainly bright red blood. Denies any blood clots. No complaints of chest pain or shortness of breath. No nausea or vomiting or diarrhea or abdominal pain. No palpitations. Denies any prior episodes of hemoptysis. No prior history of TB. Denies any fever or chills. Patient does have chronic cough and does smoke on a daily basis. Patient denies any loss of appetite recent unintentional weight loss. Patient is also on aspirin and Plavix due to peripheral vascular disease. Chest x-ray showed no acute cardiopulmonary abnormality. CTA chest was done due to elevated D-dimer level. Showed no PE. Dominant right upper lobe consolidation with multifocal airspace and groundglass opacities in the lungs are favored to be infectious in nature. Severe upper lobe predominant centrilobular emphysema. Penetrating atherosclerotic ulcer of the suprarenal aorta measuring 1.7 cm in length and 0.6 cm in depth. No other acute findings. EKG showed sinus bradycardia Laboratory showed WBC 11.4 hemoglobin 14.5 and platelets 288 Sodium 143, potassium 3.8, chloride 99, bicarb is 33, BUN 16 and creatinine 0.97 and blood sugar is 124. Calcium 9.8. Urinalysis is negative for infection Influenza A, B, RSV and COVID-19 PCR not detected. D-dimer level is 2.14 Review of Systems Constitutional: Patient denies any fever or chills . no Generalized weakness. Abdomen: Patient denied any nausea or vomiting or abd. pain Cardiovascular: Patient denies any chest pain or short of breath no palpitations. Hemoptysis. Respiratory: patient does have chronic cough. no sputum production. No shortness of breath Neurologic: Patient denied any numbness or tingling or headache. Musculoskeletal: Patient denies any complaints of joint swelling or deformity. Skin: Negative Psychiatric: Negative Endocrine: No heat or cold intolerance. No recent weight gain. Genitourinary: No dysuria or hematuria. All other 14 point ROS negative except the above Past Medical History Past Medical History: Hyperlipidemia, Hypertension, Skin Disorder, Vascular Disorder Additional Past Medical History / Comment(s): PSORIASIS, left ankle chronic swelling, peripheral vascular disease requiring revascularization History of Any Multi-Drug Resistant Organisms: None Reported Past Surgical History: No Surgical Hx Reported Additional Past Surgical History / Comment(s): LIPOMA REMOVED FROM BACK left arm, aortogram with runoff, revascularization to left leg with stent Past Anesthesia/Blood Transfusion Reactions: No Reported Reaction Past Psychological History: Anxiety Smoking Status: Current every day smoker - Past Family History Mother Family Medical History: No Reported History Medications and Allergies Home Medications Medication Instructions Recorded Confirmed Type Losartan Potassium [Cozaar] 50 mg PO DAILY 11/20/15 02/06/23 History hydroCHLOROthiazide 25 mg PO DAILY 11/20/15 02/06/23 History Aspirin 81 mg PO DAILY 10/30/20 02/06/23 History Atorvastatin [Lipitor] 20 mg PO DAILY 10/30/20 02/06/23 History allopurinoL [Zyloprim] 100 mg PO DAILY 10/30/20 02/06/23 History Multivit-Min/Folic/Vit K/Lycop 1 tab PO DAILY 11/13/20 02/06/23 History [Men's Multivitamin Tablet] Clopidogrel [Plavix] 1 tab PO DAILY 03/12/22 02/06/23 History Amoxic-Pot Clav 875-125Mg 1 tab PO Q12HR #20 tablet 02/06/23 Rx [Augmentin 875-125] Azithromycin [Zithromax] 500 mg PO DAILY #5 tab 02/06/23 Rx Benzonatate [Tessalon Perles] 100 mg PO TID PRN #15 capsule 02/06/23 Rx Allergies Allergy/AdvReac Type Severity Reaction Status Date / Time No Known Allergies Allergy Verified 02/06/23 08:29 Physical Exam Vitals: Vital Signs Temp Pulse Resp BP Pulse Ox 02/06/23 12:03 98.1 F 64 18 123/77 95 02/06/23 11:10 97 02/06/23 11:07 59 L 20 88 L 02/06/23 10:05 98.0 F 75 19 140/99 94 L 02/06/23 09:21 86 16 93 L 02/06/23 08:01 98.2 F 60 18 137/80 94 L 02/06/23 07:55 65 02/06/23 07:45 63 96 02/06/23 06:59 66 16 160/99 96 02/06/23 02:00 61 16 132/87 94 L 02/05/23 23:21 74 20 168/78 95 02/05/23 20:51 98.3 F 96 18 182/73 92 L Intake and Output 02/05/23 02/06/23 02/06/23 22:59 06:59 14:59 Other: Weight 106.141 kg PHYSICAL EXAMINATION: Patient is lying in the bed comfortably, no acute distress, awake alert and oriented.. HEENT: Normocephalic. Neck is supple. Pupils reactive. Nostrils clear. Oral cavity is moist. Neck reveals no JVD, carotid bruits, or thyromegaly. CHEST EXAMINATION: Trachea is central. Symmetrical expansion. Lung sweet clear to auscultation and percussion. CARDIAC: Normal S1, S2 with no gallops. No murmurs ABDOMEN: Soft. Bowel sounds present. Nontender. No organomegaly. No abdominal bruits. Extremities: reveal no edema. No clubbing or cyanosis Neurologically awake, alert, oriented x3 with well-coordinated movements. No focal deficits noted Skin: No rash or skin lesions. Psychiatric: Coperative. Nonsuicidal, Musculoskeletal: No joint swelling or deformity. Normal range of motion. Results CBC & Chem 7: 02/05/23 23:23 02/05/23 23:23 Labs: Abnormal Lab Results - Last 24 Hours (Table) 02/05/23 02/05/23 02/06/23 Range/Units 23:23 23:23 00:55 WBC 11.4 H (3.8-10.6) k/uL D-Dimer 2.14 H (<0.60) mg/L FEU Carbon Dioxide 33 H (22-30) mmol/L Glucose 124 H (74-99) mg/dL Thrombosis Risk Factor Assmnt - DVT/VTE Prophylaxis DVT/VTE Prophylaxis: Mechanical Prophylaxis ordered Assessment and Plan Assessment: Acute hemoptysis Right upper lobe consolidation with multifocal airspace and groundglass opacities in the lungs likely pneumonia. Underlying malignancy cannot be excluded. COPD with severe upper lobe predominant centrilobular emphysema. Ongoing nicotine addiction Peripheral vascular disease with prior history of left common iliac balloon angioplasty and stent placement. Hypertension Hyperlipidemia Anxiety History of psoriasis DVT prophylaxis with SCDs Plan: Patient will be continued on antibiotics with ceftriaxone and azithromycin. Monitor H&H Continue with IV hydration with normal saline Follow-up sputum culture and urine Legionella antigen. Procalcitonin levels ordered. Pulmonary is on board. Aspirin and Plavix is on hold for possible bronchoscopy. Blood cultures were drawn in the ER.. Discussed with the patient in detail at bedside. Follow-up closely. Time with Patient: Greater than 30
[2023-02-06] MEDS ORDERED: TRANEXAMIC ACID 1,000 MG/10 ML VIAL MISCELLANE ONE (23:14)
[2023-02-07] MEDS ORDERED: LORazepam 0.5 MG TAB PO PRN (00:36)
[2023-02-07] MEDS: SODIUM CHLORIDE 0.9% 1,000 ML IV SCH ×2 (03:38→23:05)
[2023-02-07] MEDS ORDERED: ASPIRIN 81 MG PO SCH (09:00)
[2023-02-07] MEDS ORDERED: CLOPIDOGREL 75 MG TAB PO SCH (09:00)
[2023-02-07] MEDS: ATORVASTATIN 20 MG TAB PO SCH (09:05)
[2023-02-07] MEDS: allopurinoL 100 MG TAB PO SCH (09:05)
[2023-02-07] MEDS: AZITHROMYCIN 500 MG in SODIUM CHLORIDE 0.9% 250 ML IVPB SCH (10:34)
[2023-02-07 11:29] LABS: Basophils # (A) 0.04 X 10*3/uL (0.00-0.10); Basophils % (A) 0.4 %; Eosinophils # (A) 0.16 X 10*3/uL (0.04-0.35); Eosinophils % (A) 1.7 %; HCT 37.1 % (39.6-50.0); HGB 12.6 g/dL (13.0-17.0); Lymphocytes % (A) 30.9 %; MCH 31.2 pg (27.0-32.0); MCV 91.8 FL (80.0-97.0); Mean Platelet Volume 10.3 FL (9.5-12.2); Monocytes # (A) 0.87 X 10*3/uL (0.20-1.00); Monocytes % (A) 9.3 %; NRBC Per 100 WBC 0 X 10*3/uL (0.00-0.01); Neutrophils # (A) 5.41 X 10*3/uL (1.80-7.70); Neutrophils % (A) 57.5 %; Platelet Count 254 X 10*3/uL (140-440); RBC 4.04 X 10*6/uL (4.40-5.60); RDW 12.8 % (11.5-14.5)
[2023-02-07 11:47] LABS: Blood Urea Nitrogen 13.8 mg/dL (9.0-27.0); Calcium 9.4 mg/dL (8.7-10.3); Carbon Dioxide 26.7 mmol/L (21.6-31.8); Chloride 105 mmol/L (96-109); Glucose 104 mg/dL (70-110); Potassium 4.3 mmol/L (3.5-5.5); Sodium 141 mmol/L (135-145)
--- NOTE | 2023-02-07 13:31 | XR ---
EXAMINATION TYPE: XR chest 1V DATE OF EXAM: 02/07/2023 COMPARISON: 02/05/2023 HISTORY: 52-year-old male hemoptysis TECHNIQUE: Single frontal view of the chest is obtained. FINDINGS: Heart normal size. Aorta and pulmonary vasculature within normal limits. Hyperinflation. M ild interstitial prominence more so on the right. No florentino consolidation or pleural effusion. IMPRESSION: Similar exam. COPD with subtle scattered interstitial infiltrates which were more appare nt on the patient's CT of yesterday. Possible atypical or COVID pneumonia.
[2023-02-07] MEDS ORDERED: BENZOCAINE/MENTHOL LOZENG 1 EACH LOZENGE MUCOUS MEM PRN (17:12)
--- NOTE | 2023-02-07 17:53 | P.PN ---
Subjective Progress Note Date: 02/07/23 This is a 52-year-old mentation, chronic smoker who works in [employer]. The patient presented to the emergency department yesterday after he had a episode of hemoptysis at work. He had a second episode of hemoptysis with some limited blood clots here in the emergency department. As such, the patient has had a total of 2 episodes of hemoptysis. No worsening shortness of breath. No fever or chills. No significant sputum production. No pleurisy. No previous episodes of hemoptysis. No history of TB exposure. The patient came into the emergency department. A chest x-ray was done and a chest x-ray showed no acute cardiac pulmonary abnormalities, following that, the patient was given a CT of the chest that showed no evidence of any pulmonary embolism. There was a right upper lobe consolidation with multifocal airspace disease and scattered areas of groundglass opacities bilaterally and based on the overall CAT scan findings, this was consistent with infectious process done malignancy. There is also a right hilar lymph node that is slightly enlarged. There is emphysematous bina nges bilaterally with upper lobe predominance. 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 No other acute abnormalities have been noted. The patient has limited on accommodation of aspirin and Plavix regarding a previous history of claudication and peripheral vascular disease and disease involving the common iliac artery for which the patient has required balloon angioplasty and stenting. As such, the patient has been On accommodation of aspirin and Plavix. The patient is a chronic smoker. The white cell count is 11.4 with a hemoglobin 14.7 and a platelet count of 288. D-dimer is at 2.14. BUN is at 60 with a creatinine of 0.9 and a sodium level is 143. UA is negative. The viral screen was negative. The patient is a previous Covid 19 infection back in 10/27/2021. No recurrent pneumonias. The patient is currently on accommodation of Rocephin and Zithromax. He is also on IV fluids with normal saline at rate of 100 mL an hour. on today's evaluation of 02/07/2023, the patient has no respiratory distress. Nevertheless, he has had for further episodes of hemoptysis. He remains on accommodation of Rocephin and Zithromax. No fever. No chills.The blood work shows an obese count 9.4, hemoglobin 12.6 and a platelet count of 254. Is pro- calcitonin level was at 0.08. Sodium levels of 141 with a potassium level of 4.3. BUN is at 13 with a creatinine of 1. Legionella urine antigen was negative. Remains on IV fluids. Repeat chest x-ray shows no interval change. The patient has COPD and subtle interstitial infiltrates bilaterally. The right upper lobe masslike consolidation is not adequately seen on the chest x-rays. Objective - Vital Signs Vital signs: Vital Signs Temp 97.7 F 02/07/23 08:00 Pulse 62 02/07/23 08:00 Resp 16 02/07/23 08:00 BP 145/83 02/07/23 08:00 Pulse Ox 96 02/07/23 08:00 FiO2 Intake & Output 02/06/23 02/07/23 02/07/23 18:59 06:59 18:59 Weight 106.141 kg - Exam The patient appeared well nourished and normally developed. Vital signs as documented. Head exam is unremarkable. The patient is currently on 2 L of O2 nasal cannula with a pulse ox of 97%. Room air pulse ox dropped as low as 88% at the time of his admission. No scleral icterus or corneal arcus noted. Neck is without jugular venous distension, thyromegaly, or carotid bruits. Carotid upstrokes are brisk bilaterally. Lungs are clear to auscultation and percussion. Cardiac exam reveals the PMI to be normally sized and situated. Rhythm is regular. First and second heart sounds normal. No murmurs, rubs or gallops. Abdominal exam reveals normal bowel sounds, no masses, no organomegaly and no aortic enlargement. Extremities are nonedematous and both femoral and pedal pulses are normal.Examination of the skin revealed no evidence of significant rashes, suspicious appearing nevi or other concerning lesions.Neurologically, the patient is awake and alert and the patient does not have any focal neurological deficit. Cranial nerves are essentially intact. - Labs CBC & Chem 7: 02/07/23 06:41 02/07/23 06:41 Labs: Abnormal Lab Results - Last 24 Hours (Table) 02/07/23 Range/Units 06:41 RBC 4.04 L (4.40-5.60) X 10*6/uL Hgb 12.6 L (13.0-17.0) g/dL Hct 37.1 L (39.6-50.0) % Assessment and Plan Plan: Acute hemoptysis with a consolidating masslike opacity in the right upper lobe and scattered areas of patchy groundglass pulmonary infiltrates and the overall picture is consistent with infectious causes over malignancy. There is also a right hilar lymph node that needs to be watched very closely. The patient is currently on accommodation of Rocephin and Zithromax. Patient is also on a combination of aspirin and Plavix that was given following a vascular intervention involving the left lower extremity. No significant shortness of breath. No exposure to tuberculosis. He is a chronic smoker COPD with upper lobe predominance Chronic smoker Peripheral vascular disease with previous claudication and occlusion of the common iliac artery post adjuvant seen and stenting, maintain on a termination of aspirin and Plavix Hyperlipidemia Hypertension History of psoriasis Gout Plan Repeat chest x-ray shows no interval change. The patient has COPD and subtle interstitial infiltrates bilaterally. The right upper lobe masslike consolidation is not adequately seen on the chest x-rays. patient is continuing to have episodes of hemoptysis Aspirin and Plavix on hold Obtain sputum Gram stain and culture Obtain Legionella urine antigenwas negative Check pro calcitoninwas not elevated Agree on the current antibiotic coverage Will likely discharge this patient home within the next 24-48 hours as long as there is no active hemoptysis. He will complete a 7 to 10 day course of antibiotics. Bronchoscopy will be needed for diagnostic purposes especially of the right upper lobe pulmonary infiltrate is unchanged. We will need to have a follow-up chest x-ray and possibly a bronchoscopy at the later stage of his hemoptysis recurs and/or his right upper lobe pulmonary infiltrates remain unchanged. patient is agreeable to that. We'll continue to follow
[2023-02-08] MEDS: SODIUM CHLORIDE 0.9% 1,000 ML IV SCH (05:52)
[2023-02-08 07:49] LABS: Basophils # (A) 0.1 k/uL (0-0.2); Basophils % (A) 1 %; Eosinophils # (A) 0.1 k/uL (0-0.7); Eosinophils % (A) 1 %; HCT 35.2 % (39.0-53.0); HGB 12.4 gm/dL (13.0-17.5); Lymphocytes # (A) 3.2 k/uL (1.0-4.8); Lymphocytes % (A) 32 %; MCH 32.7 pg (25.0-35.0); MCHC 35.1 g/dL (31.0-37.0); MCV 93.3 fL (80.0-100.0); Monocytes # (A) 0.5 k/uL (0-1.0); Monocytes % (A) 5 %; Neutrophils # (A) 5.8 k/uL (1.3-7.7); Neutrophils % (A) 59 %; Platelet Count 242 k/uL (150-450); RBC 3.78 m/uL (4.30-5.90); RDW 12.6 % (11.5-15.5); WBC 9.9 k/uL (3.8-10.6)
[2023-02-08 08:19] VITALS: RESP 16
[2023-02-08] MEDS: allopurinoL 100 MG TAB PO SCH (09:20)
[2023-02-08] MEDS: AZITHROMYCIN 500 MG in SODIUM CHLORIDE 0.9% 250 ML IVPB SCH (09:20)
[2023-02-08] MEDS: ATORVASTATIN 20 MG TAB PO SCH (09:20)
[2023-02-08 14:18] VITALS: BP 132/69; PULSE 51; TEMP 97.6
--- NOTE | 2023-02-08 15:26 | P.PN ---
Subjective Progress Note Date: 02/08/23 This is a 52-year-old mentation, chronic smoker who works in [employer]. The patient presented to the emergency department yesterday after he had a episode of hemoptysis at work. He had a second episode of hemoptysis with some limited blood clots here in the emergency department. As such, the patient has had a total of 2 episodes of hemoptysis. No worsening shortness of breath. No fever or chills. No significant sputum production. No pleurisy. No previous episodes of hemoptysis. No history of TB exposure. The patient came into the emergency department. A chest x-ray was done and a chest x-ray showed no acute cardiac pulmonary abnormalities, following that, the patient was given a CT of the chest that showed no evidence of any pulmonary embolism. There was a right upper lobe consolidation with multifocal airspace disease and scattered areas of groundglass opacities bilaterally and based on the overall CAT scan findings, this was consistent with infectious process done malignancy. There is also a right hilar lymph node that is slightly enlarged. There is emphysematous bina nges bilaterally with upper lobe predominance. 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 No other acute abnormalities have been noted. The patient has limited on accommodation of aspirin and Plavix regarding a previous history of claudication and peripheral vascular disease and disease involving the common iliac artery for which the patient has required balloon angioplasty and stenting. As such, the patient has been On accommodation of aspirin and Plavix. The patient is a chronic smoker. The white cell count is 11.4 with a hemoglobin 14.7 and a platelet count of 288. D-dimer is at 2.14. BUN is at 60 with a creatinine of 0.9 and a sodium level is 143. UA is negative. The viral screen was negative. The patient is a previous Covid 19 infection back in 10/27/2021. No recurrent pneumonias. The patient is currently on accommodation of Rocephin and Zithromax. He is also on IV fluids with normal saline at rate of 100 mL an hour. on today's evaluation of 02/07/2023, the patient has no respiratory distress. Nevertheless, he has had for further episodes of hemoptysis. He remains on accommodation of Rocephin and Zithromax. No fever. No chills.The blood work shows an obese count 9.4, hemoglobin 12.6 and a platelet count of 254. Is pro- calcitonin level was at 0.08. Sodium levels of 141 with a potassium level of 4.3. BUN is at 13 with a creatinine of 1. Legionella urine antigen was negative. Remains on IV fluids. Repeat chest x-ray shows no interval change. The patient has COPD and subtle interstitial infiltrates bilaterally. The right upper lobe masslike consolidation is not adequately seen on the chest x-rays. On today's evaluation of 02/08/2023, the patient has not had any further episodes of hemoptysis. Doing well. Clinically stable. No new complaints. Cultures are negative. The patient is to be discharged home today. He is on room air oxygen. He will need outpatient follow-up. We'll keep aspirin and Plavix on hold. He'll be discharged home on a course of Augmentin and Zithromax and he is going to need a follow-up CAT scan in 10-14 days. Objective - Vital Signs Vital signs: Vital Signs Temp 97.5 F L 02/08/23 08:00 Pulse 56 L 02/08/23 08:00 Resp 16 02/08/23 08:00 BP 134/77 02/08/23 08:00 Pulse Ox 97 02/08/23 08:00 FiO2 Intake & Output 02/07/23 02/08/23 02/08/23 18:59 06:59 18:59 Intake Total 300 200 Balance 300 200 Weight 106.141 kg Intake: Oral 300 200 Other: Voiding Method Toilet # Voids 3 4 - Exam The patient appeared well nourished and normally developed. Vital signs as documented. Head exam is unremarkable. The patient is currently on 2 L of O2 n bianca cannula with a pulse ox of 97%. Room air pulse ox dropped as low as 88% at the time of his admission. No scleral icterus or corneal arcus noted. Neck is without jugular venous distension, thyromegaly, or carotid bruits. Carotid upstrokes are brisk bilaterally. Lungs are clear to auscultation and percussion. Cardiac exam reveals the PMI to be normally sized and situated. Rhythm is regular. First and second heart sounds normal. No murmurs, rubs or gallops. Abdominal exam reveals normal bowel sounds, no masses, no organomegaly and no aortic enlargement. Extremities are nonedematous and both femoral and pedal pulses are normal.Examination of the skin revealed no evidence of significant ra shes, suspicious appearing nevi or other concerning lesions.Neurologically, the patient is awake and alert and the patient does not have any focal neurological deficit. Cranial nerves are essentially intact. - Labs CBC & Chem 7: 02/08/23 07:36 02/07/23 06:41 Labs: Abnormal Lab Results - Last 24 Hours (Table) 02/08/23 Range/Units 07:36 RBC 3.78 L (4.30-5.90) m/uL Hgb 12.4 L (13.0-17.5) gm/dL Hct 35.2 L (39.0-53.0) % Microbiology - Last 24 Hours (Table) 02/06/23 06:00 Blood Culture - Preliminary Blood 02/06/23 06:15 Blood Culture - Preliminary Blood 02/06/23 14:00 Gram Stain - Preliminary Sputum Assessment and Plan Plan: Acute hemoptysis with a consolidating masslike opacity in the right upper lobe and scattered areas of patchy groundglass pulmonary infiltrates and the overall picture is consistent with infectious causes over malignancy. There is also a right hilar lymph node that needs to be watched very closely. The patient is currently on accommodation of Rocephin and Zithromax. Patient is also on a combination of aspirin and Plavix that was given following a vascular intervention involving the left lower extremity. No significant shortness of breath. No exposure to tuberculosis. He is a chronic smoker COPD with upper lobe predominance Chronic smoker Peripheral vascular disease with previous claudication and occlusion of the common iliac artery post adjuvant seen and stenting, maintain on a termination of aspirin and Plavix Hyperlipidemia Hypertension History of psoriasis Gout Plan This patient has not had any further episodes of hemoptysis over the past 24 hours Repeat chest x-ray from yesterday showed no interval change. The patient has COPD and subtle interstitial infiltrates bilaterally. The right upper lobe masslike consolidation is not adequately seen on the chest x-rays. We will keep the Aspirin and Plavix on hold The patient is to be discharged home on a course of Augmentin and Zithromax. Outpatient follow-up in 10-14 days. Likely need a follow-up CAT scan. Is abnormalities and the right upper lobe remains unchanged, the patient will need bronchoscopy and biopsies. He is aware. He was seen back in the office.
== END 2023-02-08 14:45 | disposition home or self-care (01) | DRG 190 ==
LOC: EC 20:42 → 4SSUR 02-06 06:18 → OBSVTOIN 02-06 14:44 → 4SSUR 02-06 18:47
PROVIDERS: ADMIT Hospitalist; ATTEND Hospitalist
DX: J43.2 Centrilobular emphysema (principal); J18.9 Pneumonia, unspecified organism; J44.0 Chronic obstructive pulmonary disease with (acute) lower respiratory infection; I70.209 Unspecified atherosclerosis of native arteries of extremities, unspecified extremity; I71.41 Pararenal abdominal aortic aneurysm, without rupture; I10 Essential (primary) hypertension; F17.210 Nicotine dependence, cigarettes, uncomplicated; L40.9 Psoriasis, unspecified; E78.5 Hyperlipidemia, unspecified; M10.9 Gout, unspecified; Z20.822 Contact with and (suspected) exposure to COVID-19; Z95.820 Peripheral vascular angioplasty status with implants and grafts; Z86.16 Personal history of COVID-19; Z79.02 Long term (current) use of antithrombotics/antiplatelets; Z79.82 Long term (current) use of aspirin; Z79.899 Other long term (current) drug therapy; Z28.310 Unvaccinated for COVID-19
CPT/HCPCS: 36415; 71045; 71046; 71275; 80048; 81003; 84145; 84443; 85025; 85379; 87040; 87070; 87205; 87449; 87636; 93005; 94640; 96361; 96365; 96366; 96367; 96372; 99285

== ENCOUNTER → 2023-02-19 | Outpatient (CLI) | payer OTHER ==
--- NOTE | 2023-02-19 15:09 | CT ---
EXAMINATION TYPE: CT chest wo con DATE OF EXAM: 02/19/2023 COMPARISON: 02/06/2023 and 12/24/2017 HISTORY: 52-year-old male R04.2, hemoptysis TECHNIQUE: Contiguous axial scanning of the chest without IV contrast. Coronal/sagittal reconstructi ons performed. CT DLP: 622mGycm. Automatic exposure control utilized for a dose reduction. FINDINGS: The heart is normal size without pericardial effusion. Ectatic aortic root at 3.7 cm. Ectatic upper descending thoracic aorta 3.1 cm. Conventional arch vess el branching anatomy. Scattered nonenlarged mediastinal lymph nodes. No thoracic lymphadenopathy by CT size criteria. Numerous scattered areas of patchy groundglass change especially in the periphery of the lungs is sim ilar. Previous consolidation posterior right upper lobe has partially improved. Background of moderate emphysema. No progressive consolidation. Small areas of groundglass in the low er lungs has improved as well. No pleural effusion. Tiny hiatal hernia. Visualized upper abdomen shows stable 1.1 cm lipid rich left adrenal adenoma. Bones: No osseous destructive process. IMPRESSION: 1. COPD with multifocal groundglass change especially in the periphery of the lungs could reflect aty pical or COVID pneumonia. These changes are similar to slightly improved. 2. The previous airspace disease/pneumonia posterior right upper lobe is improving but residual patch y opacity remains. Recommend follow-up in 3-6 months to assess for the development of any chronic sca rring.
== END | disposition home or self-care (01) ==
LOC: RADCTMAIN 11:34
PROVIDERS: ATTEND Internal Medicine Critical Care Medicine
DX: J44.9 Chronic obstructive pulmonary disease, unspecified (principal); R91.8 Other nonspecific abnormal finding of lung field; R04.2 Hemoptysis
CPT/HCPCS: 71250